=== PATIENT | male | born 1940 | race Caucasian/White ===

== ENCOUNTER → 2021-11-25 | Outpatient (CLI) | payer MEDICARE | LOC: RAD 10:01 | DX: N32.9 Bladder disorder, unspecified (principal); N28.1 Cyst of kidney, acquired; N40.0 Benign prostatic hyperplasia without lower urinary tract symptoms | CPT/HCPCS: Q9967 ==

== ENCOUNTER 2021-12-14 19:52 | Emergency (ER) | payer MEDICARE ==
[~2021-12-14] VITALS: Ht 180.3 cm; Wt 104.5 kg
[2021-12-14] MEDS ORDERED: CEFDINIR300 MG PO (20:05)
[2021-12-14] MEDS ORDERED: MITIGARE0.6 MG PO (21:03)
[2021-12-14] MEDS ORDERED: GLUCOPHAGE PO (21:03)
[2021-12-14] MEDS ORDERED: FLOMAX0.4 MG PO (21:03)
[2021-12-14] MEDS ORDERED: ALLOPURINOL300 M1 PO (21:03)
[2021-12-14] MEDS ORDERED: EZETIMIBE10 M1 PO (21:04)
[2021-12-14] MEDS ORDERED: ZIAC 5-6.25 MG1 EACH PO (21:04)
[2021-12-14] MEDS ORDERED: CRESTOR5 MG PO (21:04)
[2021-12-14 21:13] LABS: HEMATOCRIT 36.7 % (42.0-52.0); HEMOGLOBIN 12.6 g/dL (13.5-18.0); MEAN CELL VOLUME 95 fl (78-100); MEAN CORPUSCULAR HEMOGLOBIN 33 pg (27-31); MEAN CORPUSCULAR HGB CONC 34 g/dL (33-37); MEAN PLATELET VOLUME 9.4 fl (7.4-10.4); PLATELET COUNT 112 K/mm3 (130-400); RED BLOOD COUNT 3.87 M/mm3 (4.20-5.60); WHITE BLOOD COUNT 13.5 K/mm3 (4.8-10.8)
[2021-12-14 21:20] LABS: ALBUMIN 3.6 g/dL (3.4-4.8)
[2021-12-14 21:21] LABS: POTASSIUM 3.5 mmol/L (3.5-5.1)
[2021-12-14 21:22] LABS: CALCIUM 8.7 mg/dL (8.3-10.5)
[2021-12-14 21:25] LABS: TOTAL BILIRUBIN 1.1 mg/dL (0.2-1.2)
[2021-12-14 21:39] LABS: BAND 11 % (0-10); LYMPHOCYTE 5 % (20-51); MONOCYTE 5 % (3-10); NEUTROPHILS 79 % (42-75)
[2021-12-14 22:46] LABS: URINE APPEARANCE CLOUDY; URINE BILIRUBIN NEGATIVE (NEGATIVE); URINE BLOOD 50 ery/uL (NEGATIVE); URINE COLOR YELLOW; URINE GLUCOSE NEGATIVE (NEGATIVE); URINE KETONE NEGATIVE (NEGATIVE); URINE LEUKOCYTE ESTERASE 2+ (NEGATIVE); URINE NITRATE NEGATIVE (NEGATIVE); URINE PROTEIN(semi-quant) 1+ (NEGATIVE); URINE UROBILINOGEN NORMAL (NORMAL); URINE WBC >50 /hpf (0-3)
[2021-12-15 09:45] LABS: HEMATOCRIT 39.2 % (42.0-52.0); HEMOGLOBIN 13.5 g/dL (13.5-18.0); MEAN PLATELET VOLUME 9.7 fl (7.4-10.4); RED BLOOD COUNT 4.1 M/mm3 (4.20-5.60); RED CELL DISTRIBUTION WIDTH 14.1 % (11.5-14.5); WHITE BLOOD COUNT 12.9 K/mm3 (4.8-10.8)
[2021-12-15 09:48] LABS: POTASSIUM 3.9 mmol/L (3.5-5.1)
[2021-12-16 08:11] LABS: BASO # 0.02 K/mm3 (0.02-0.10); EOS # 0.19 K/mm3 (0.04-0.40); EOS % 1.8 % (0.0-4.0); HEMOGLOBIN 12.5 g/dL (13.5-18.0); LYMPH# 1.12 K/mm3 (1.50-4.00); MEAN CELL VOLUME 96 fl (78-100); MEAN CORPUSCULAR HEMOGLOBIN 33 pg (27-31); MEAN CORPUSCULAR HGB CONC 34 g/dL (33-37); MEAN PLATELET VOLUME 9.8 fl (7.4-10.4); MONO # 1.31 K/mm3 (0.20-0.80); NEU # 7.97 K/mm3 (1.40-6.50); PLATELET COUNT 113 K/mm3 (130-400); RED BLOOD COUNT 3.85 M/mm3 (4.20-5.60); RED CELL DISTRIBUTION WIDTH 14.1 % (11.5-14.5); WHITE BLOOD COUNT 10.6 K/mm3 (4.8-10.8)
[2021-12-16 08:21] LABS: ALBUMIN 3.1 g/dL (3.4-4.8); POTASSIUM 3.4 mmol/L (3.5-5.1)
[2021-12-16 08:22] LABS: CALCIUM 8.1 mg/dL (8.3-10.5)
[2021-12-16 08:24] LABS: TOTAL PROTEIN 6.4 g/dL (6.2-8.1)
[2021-12-16 09:37] VITALS: BP 134/80
== END 2021-12-16 09:28 | disposition home or self-care (01) ==
LOC: ED 19:52
PROVIDERS: Family Medicine; Nurse Practitioner
DX: N12 Tubulo-interstitial nephritis, not specified as acute or chronic (principal); N40.0 Benign prostatic hyperplasia without lower urinary tract symptoms; Z20.822 Contact with and (suspected) exposure to COVID-19
CPT/HCPCS: J0696; J2543; J7030

== ENCOUNTER 2022-01-11 10:33 | Emergency (ER) | payer MEDICARE ==
[~2022-01-11] VITALS: Wt 107.6 kg
[~2022-01-11 10:33] MED LIST: ALLOPURINOL300 M1 PO; CEFDINIR300 MG PO; CRESTOR5 MG PO; EZETIMIBE10 M1 PO; FLOMAX0.4 MG PO; GLUCOPHAGE PO; MITIGARE0.6 MG PO; ZIAC 5-6.25 MG1 EACH PO
[2022-01-11 10:52] LABS: HEMATOCRIT 38.7 % (42.0-52.0); HEMOGLOBIN 13.1 g/dL (13.5-18.0); MEAN CELL VOLUME 97 fl (78-100); MEAN CORPUSCULAR HEMOGLOBIN 33 pg (27-31); MEAN CORPUSCULAR HGB CONC 34 g/dL (33-37); MEAN PLATELET VOLUME 9.1 fl (7.4-10.4); PLATELET COUNT 108 K/mm3 (130-400); RED CELL DISTRIBUTION WIDTH 13.9 % (11.5-14.5); WHITE BLOOD COUNT 7.7 K/mm3 (4.8-10.8)
[2022-01-11 11:02] LABS: ALBUMIN 3.8 g/dL (3.4-4.8); POTASSIUM 3.9 mmol/L (3.5-5.1)
[2022-01-11 11:05] LABS: TOTAL PROTEIN 7.3 g/dL (6.2-8.1)
[2022-01-11 11:06] LABS: TOTAL BILIRUBIN 1.3 mg/dL (0.2-1.2)
[2022-01-11 11:11] LABS: BAND 1 % (0-10); LYMPHOCYTE 7 % (20-51); NEUTROPHILS 84 % (42-75)
[2022-01-11 11:12] LABS: MONOCYTE 6 % (3-10)
[2022-01-11 12:08] LABS: URINE APPEARANCE CLOUDY; URINE BILIRUBIN NEGATIVE (NEGATIVE); URINE BLOOD 250 ery/uL (NEGATIVE); URINE COLOR YELLOW; URINE GLUCOSE NEGATIVE (NEGATIVE); URINE KETONE NEGATIVE (NEGATIVE); URINE LEUKOCYTE ESTERASE 2+ (NEGATIVE); URINE NITRATE POSITIVE (NEGATIVE); URINE PROTEIN(semi-quant) 1+ (NEGATIVE); URINE UROBILINOGEN NORMAL (NORMAL); URINE WBC >50 /hpf (0-3)
[2022-01-11] MEDS ORDERED: CEFDINIR300 MG PO ×2 (16:33→16:35)
[2022-01-11 17:00] VITALS: BP 153/61
== END 2022-01-11 17:10 | disposition home or self-care (01) ==
LOC: ED 10:33
PROVIDERS: Family Medicine
DX: R05.1 Acute cough (principal)
CPT/HCPCS: J0696; J7120